=== PATIENT | female | born 1980 | race Two or more races ===

== ENCOUNTER 2017-06-21 22:57 | Emergency (ER) | payer BC, OTHER ==
[2017-06-21 23:12] VITALS: BP 108/64; PULSE 67; TEMP 98.7; BMI 29.2
[2017-06-21] MEDS ORDERED: ONDANSETRON *ODT* 4 MG TABLET ONE (23:13)
[2017-06-21] MEDS ORDERED: ONDANSETRON *ODT* 4 MG TABLET SL ONE ×2 (23:15)
--- NOTE | 2017-06-21 23:15 | PDOC ---
History of Present Illness - General Chief Complaint: Nausea/Vomiting Stated Complaint: NAUSEA/VOMITING Time Seen by Provider: 06/21/17 23:07 Past History - Past Medical History Allergies/Adverse Reactions: Allergies Allergy/AdvReac Type Severity Reaction Status Date / Time No Known Allergies Allergy Verified 12/27/15 03:45 Home Medications: Ambulatory Orders metroNIDAZOLE [Flagyl -] 500 mg PO TID 06/21/17 Ondansetron [Zofran Odt -] 4 mg SL BID PRN #10 od.tablet 06/22/17 - Suicide/Smoking/Psychosocial Hx Smoking History: Former smoker Have you smoked in the past 12 months: Yes 'Breaking Loose' booklet given: 12/27/15 Hx Alcohol Use: Yes (OCCAS./2 BEERS TONIGHT) Drug/Substance Use Hx: No *DC/Admit/Observation/Transfer Diagnosis at time of Disposition: Gastroenteritis - Discharge Dispostion Disposition: HOME Condition at time of disposition: Stable - Referrals - Patient Instructions Printed Discharge Instructions: DI for Viral Gastroenteritis -- Adult Additional Instructions: clear liquid diet advance diet cautiously stop Metronidazole Zofran ODT 4 mg up to 3 times a day as needed for persistent nausea No work for the next 2 days Follow-up with your physician within the next 5 days Return to ER if you have persistent vomiting or experience abdominal pain/high fever/bloody diarrhea - Post Discharge Activity
[2017-06-22] MEDS ORDERED: SODIUM CHLORIDE 1,000 ML IV STA (00:14)
== END 2017-06-22 02:31 | disposition home or self-care (01) ==
LOC: FER 22:57
PROC: 3E0337Z Introduction of Electrolytic and Water Balance Substance into Peripheral Vein, Percutaneous Approach (ICD-10-PCS; principal; 2017-06-21)
DX: K52.9 Noninfective gastroenteritis and colitis, unspecified (principal)
CPT/HCPCS: 99281-25